=== PATIENT | male | born 1980 | race Caucasian/White ===

== ENCOUNTER 2023-09-09 09:45 | Emergency (ER) | payer BC ==
[2023-09-09 10:34] LABS: #Basophils 0.1 thou/uL (0.0-0.2); #Eosinphils 0.4 thou/uL (0.0-0.7); #Monocytes 0.4 thou/uL (0.11-0.59); #Neutrophils 3.1 thou/uL (1.40-6.50); %Basophils 0.9 % (0.0-1.0); %Eosinophils 6.2 % (0.0-10.0); %Lymphocytes 39.6 % (21.0-51.0); %Monocytes 5.8 % (0.0-10.0); %Neutrophils 47.3 % (42.0-75.0); Hematocrit 52.8 % (42.0-52.0); Hemoglobin 17.9 g/dL (14.0-18.0); Mean Corpuscular HGB CONC 33.9 g/dL (32.0-36.0); Mean Corpuscular Hemoglobin 31.3 pg (27.0-31.0); Mean Corpuscular Volume 92.3 fl (78.0-98.0); Mean Platelet Volume 11.3 fL (7.4-10.4); Platelet Count 187 10x3/uL (130-400); RBC Distribution Width 13.7 % (11.5-14.5); Red Blood Cell (RBC) Count 5.72 mill/uL (4.70-6.10); White Blood Cell (WBC) Count 6.6 10x3/uL (4.8-10.8)
[2023-09-09 10:48] LABS: INR-International Normal Ratio 0.9; Prothrombin Time 12.8 sec (12.0-14.7)
[2023-09-09 10:49] LABS: PTT 31.5 sec (22.9-36.1)
[2023-09-09 11:01] LABS: Troponin I Less than 0.010 ng/mL (< 0.028)
[2023-09-09 11:16] LABS: ALT (SGPT) 143 U/L (8-55); AST (SGOT) 90 U/L (5-34); Albumin 4.3 g/dL (3.5-5.0); Alkaline Phosphatase 66 U/L (40-110); Anion Gap 16 mmol/L (10-20); BUN (Urea Nitrogen) 6 mg/dL (8.9-20.6); Bilirubin, Total 0.4 mg/dL (0.2-1.2); Calc. Creatinine Clearance 0 mL/min (70-130); Calcium 9.7 mg/dL (7.8-10.44); Carbon Dioxide 22 mmol/L (22-29); Chloride 108 mmol/L (98-107); Estimated GFR 112; Glucose 94 mg/dL (70-105); Lipase 16 U/L (8-78); Magnesium 1.9 mg/dL (1.6-2.6); Potassium 3.9 mmol/L (3.5-5.1); Protein, Total 7.3 g/dL (6.0-8.3); Sodium 142 mmol/L (136-145)
[2023-09-09] MEDS ORDERED: Lidocaine 2% Viscous Solution 10 ML, Aluminum & Magnesium Hydroxide 30 ML SSW SCH (12:45)
[2023-09-09] MEDS ORDERED: Aspirin Chewable 81 MG TAB ONE (12:48)
[2023-09-09 14:14] LABS: Troponin I Less than 0.010 ng/mL (< 0.028)
== END 2023-09-09 14:40 | disposition home or self-care (01) ==
LOC: ERS 09:45
DX: I48.0 Paroxysmal atrial fibrillation (principal); R74.01 Elevation of levels of liver transaminase levels; Z79.82 Long term (current) use of aspirin
CPT/HCPCS: 36415; 71045; 80053; 83690; 83735; 84484; 85025; 85610; 85730; 93005